=== PATIENT | male | born 2000 | race Hispanic/Latino ===

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

== ENCOUNTER 2019-01-11 23:04 | Emergency (ER) | payer OTHER ==
--- OUTSIDE RECORDS SUMMARY | 2019-01-11 23:06 | XMS REPORT | Clinical Summary ---
:2000 Author Organization [facility] Address [address] [place] [address] Care Team Providers Name Role Phone Pcp, No Primary Care Provider Unavailable Allergies No Known Allergies Medications Medication Sig Dispensed Refills Start Date End Date Status ondansetron Take 4 mg by 0 Discontinued (ZOFRAN-ODT) 4 MG mouth every 8 disintegrating tablet 8 (eight) hours as needed for Nausea. buPROPion (WELLBUTRIN Take 150 mg 0 Discontinued XL) 150 MG 24 hr by mouth 8 tablet daily. diphenhydrAMINE Take 25 mg 0 Discontinued (BENADRYL) 25 mg by mouth 4 8 tablet (four) times daily as needed for Sleep. guanFACINE (TENEX) 2 Take 2 mg by 0 Discontinued MG tablet mouth 8 nightly. OXcarbazepine Take 300 mg 0 Discontinued (TRILEPTAL) 300 MG by mouth 2 8 tablet (two) times daily. lisdexamfetamine Take 70 mg 0 Discontinued (VYVANSE) 70 MG by mouth 8 capsule every morning. omeprazole (PRILOSEC) Take 1 28 capsule 0 05/22/2018 20 MG capsule capsule (20 8 mg total) by mouth 2 (two) times daily for 14 days. Active Problems Problem Noted Date Nausea 05/21/2018 Hypokalemia 05/20/2018 Epigastric abdominal pain 05/19/2018 Bipolar disorder 12/21/2017 History of gastritis 12/21/2017 Nausea & vomiting 12/21/2017 Abdominal pain 12/21/2017 Calculus of gallbladder with acute cholecystitis without obstruction 2017 Encounters Date Type Specialty Care Team Description 05/19/2018 - Hospital Encounter Cardiology Smiley Cardoza MD Epigastric abdominal pain (Primary Dx); 05/22/2018 Seble Cohen Nausea and vomiting, intractability of vomiting not specified, unspecified vomiting type; MD Yamilex History of cholecystitis; Nilesh Gleason History of gastritis; MD Keenan Abdominal pain, unspecified abdominal location; Hypokalemia; Marijuana abuse after 01/10/2018 Social History Tobacco Use Types Packs/Day Years Used Date Never Smoker Smokeless Tobacco: Never Used Alcohol Use Drinks/Week oz/Week Comments No Sex Assigned at Date Recorded Not on file Job Start Date Occupation Industry Not on file Not on file Not on file Travel History Travel Start Travel End No recent travel history available. Last Filed Vital Signs Vital Sign Reading Time Taken Blood Pressure 123/60 05/22/2018 11:46 AM CDT Pulse 68 05/22/2018 11:46 AM CDT Temperature 36.6 C (97.8 F) 05/22/2018 11:46 AM CDT Respiratory Rate 18 05/22/2018 11:46 AM CDT Oxygen Saturation 99% 05/22/2018 11:46 AM CDT Inhaled Oxygen Concentration - - Weight 79.7 kg (175 lb 11.2 oz) 05/20/2018 7:55 AM CDT Height 182.9 cm (6') 05/19/2018 10:05 PM CDT Body Mass Index 23.83 05/20/2018 7:55 AM CDT Plan of Treatment Not on file Procedures Procedure Name Priority Date/Time Associated Comments Diagnosis POCT-GLUCOSE METER Routine 05/22/2018 9:43 Results for this AM CDT procedure are in the results section. CBC W/PLT COUNT & Routine 05/22/2018 4:47 Results for this AUTO DIFFERENTIAL AM CDT procedure are in the results section. CBC W/PLT COUNT & Routine 05/22/2018 4:47 Results for this AUTO DIFFERENTIAL AM CDT procedure are in the results section. BASIC METABOLIC PANEL Routine 05/22/2018 4:47 Results for this (7) AM CDT procedure are in the results section. POCT-GLUCOSE METER Routine 05/21/2018 9:36 Results for this PM CDT procedure are in the results section. POCT-GLUCOSE METER Routine 05/21/2018 4:51 Results for this PM CDT procedure are in the results section. POCT-GLUCOSE METER Routine 05/21/2018 9:03 Results for this AM CDT procedure are in the results section. CBC W/PLT COUNT & Routine 05/21/2018 4:14 Results for this AUTO DIFFERENTIAL AM CDT procedure are in the results section. CBC W/PLT COUNT & Routine 05/21/2018 4:14 Results for this AUTO DIFFERENTIAL AM CDT procedure are in the results section. BASIC METABOLIC PANEL Routine 05/21/2018 4:14 Results for this (7) AM CDT procedure are in the results section. POCT-GLUCOSE METER Routine 05/20/2018 9:18 Results for this PM CDT procedure are in the results section. RAPID DRUG SCREEN, STAT 05/20/2018 3:42 Results for this URINE PM CDT procedure are in the results section. CT BRAIN WITHOUT IV STAT 05/20/2018 11:46 Results for this CONTRAST AM CDT procedure are in the results section. CBC W/PLT COUNT & Routine 05/20/2018 4:38 Results for this AUTO DIFFERENTIAL AM CDT procedure are in the results section. CBC W/PLT COUNT & Routine 05/20/2018 4:38 Results for this AUTO DIFFERENTIAL AM CDT procedure are in the results section. BASIC METABOLIC PANEL Routine 05/20/2018 4:38 Results for this (7) AM CDT procedure are in the results section. POCT-GLUCOSE METER Routine 05/19/2018 11:13 Results for this PM CDT procedure are in the results section. BLOOD CULTURE Routine 05/19/2018 10:56 Results for this PM CDT procedure are in the results section. CT ABDOMEN/PELVIS STAT 05/19/2018 7:38 Results for this WITH IV CONTRAST PM CDT procedure are in the results section. URINALYSIS W/ REFLEX STAT 05/19/2018 6:51 Results for this URINE CULTURE PM CDT procedure are in the results section. CBC W/PLT COUNT & STAT 05/19/2018 5:17 Results for this AUTO DIFFERENTIAL PM CDT procedure are in the results section. LIPASE STAT 05/19/2018 5:17 Results for this PM CDT procedure are in the results section. HEPATIC FUNCTION STAT 05/19/2018 5:17 Results for this PANEL PM CDT procedure are in the results section. BASIC METABOLIC PANEL STAT 05/19/2018 5:17 Results for this (7) PM CDT procedure are in the results section. CBC W/PLT COUNT & STAT 05/19/2018 5:17 Results for this AUTO DIFFERENTIAL PM CDT procedure are in the results section. after 01/10/2018 Results POC-Glucose meter (05/22/2018 9:43 AM CDT)Only the most recent of6 resultswithin the time period is included. POC-Glucose Meter 91Comment: TESTED AT 70 - 110 mg/dL [facility] [address] [facility] [id number] Specimen Blood Performing Organization Address City/State/Zipcode Phone Number [address] [phone] CENTER CBC with platelet count + automated diff (05/22/2018 4:47 AM CDT)Only the most recent of4 resultswithin the time period is included. WBC 4.1 3.5 - 10.5 K/L [facility] RBC 4.92 4.63 - 6.08 M/L [facility] Hemoglobin 14.1 13.7 - 17.5 GM/DL [facility] Hematocrit 42.0 40.1 - 51.0 % [facility] MCV 85.4 79.0 - 92.2 fL [facility] MCH 28.7 25.7 - 32.2 pg [facility] MCHC 33.6 32.3 - 36.5 GM/DL [facility] RDW 12.9 11.6 - 14.4 % [facility] Platelets 231 150 - 450 K/CU MM [facility] MPV 9.8 9.4 - 12.4 fL [facility] nRBC 0 0 - 0 /100 WBC [facility] % Neutros 39 % [facility] % Lymphs 40 % [facility] % Monos 11 % [facility] % Eos 9 % [facility] % Baso 1 % [facility] # Neutros 1.56 (L) 1.78 - 5.38 K/L [facility] # Lymphs 1.62 1.32 - 3.57 K/L [facility] # Monos 0.46 0.30 - 0.82 K/L [facility] # Eos 0.38 0.04 - 0.54 K/L [facility] # Baso 0.03 0.01 - 0.08 K/L [facility] Immature Granulocytes-Relative 0 0 - 1 % [facility] Specimen Blood Performing Organization Address City/State/Zipcode Phone Number [address] [address] CENTER Basic metabolic panel (05/22/2018 4:47 AM CDT)Only the most recent of4 resultswithin the time period is included. Sodium 137 136 - 145 meq/L [facility] Potassium 3.8 3.5 - 5.1 meq/L [facility] Chloride 102 98 - 107 meq/L [facility] CO2 24 22 - 29 meq/L [facility] BUN 7 7 - 21 mg/dL [facility] Creatinine 0.78 0.57 - 1.25 mg/dL [facility] Glucose 93 70 - 105 mg/dL [facility] Calcium 9.7 8.4 - 10.2 mg/dL [facility] EGFR 130Comment: ESTIMATED GFR IS mL/min/1.73 sq m [facility] NOT ACCURATE [facility] CLEARANCE IN PREDICTING GLOMERULAR FILTRATION RATE. ESTIMATED GFR IS NOT APPLICABLE FOR DIALYSIS PATIENTS. Specimen Blood Performing Organization Address City/State/[facility] Cent[facility] Phone Number [place] [phone] [place] [address] [place] Rapid drug screen, urine (05/20/2018 3:42 PM CDT) Barbiturate Screen Negative Negative [facility] Benzodiazepine Screen Negative Negative [facility] Cocaine (Metab.) Screen Negative Negative [facility] Methadone Screen Negative Negative [facility] Opiate Screen Positive (A) Negative [facility] Cannabinoid Screen Negative Negative [facility] Amph/Methamph Screen Negative Negative [facility] Phencyclidine Screen Negative Negative [facility] Oxycodone Screen Negative Negative [facility] Specimen Urine Narrative Performed At [facility]. Cocaine 300 ng/mL Jmyyjsnakkz77 ng/mL Ivtdfxkpohsppt768 ng/mL Barbiturate 200 ng/mL Cinbmqxthfuei64 ng/mL Ocfijm543 ng/mL Methadone 300 ng/mL Amphetamine/ 1000 ng/mL Methamphetamine Oxycodone 300 ng/mL This assay provides an unconfirmed qualitative test result for the clinical management of patients in emergency situations. Chain of custody not maintained. Some jfqb-pix-wzzxrgw medications, as well as adulterants, may cause inaccurate results. Clinical correlation should be applied. A more comprehensive drug screen or confirmation of a detected drug may be performed upon request. Performing Organization Address City/State/Zipcode Phone Number [facility] [address] [place] [id number] [place] [address] brain without IV contrast (05/20/2018 11:46 AM CDT) Specimen Narrative Performed At FINAL REPORT [facility] [facility] head without contrast INDICATION: Nausea, vomiting, persistent headache TECHNIQUE: Axial noncontrast CT images through the head were obtained. This exam was performed according to our departmental dose optimization program which includes automated exposure control, adjustment of the mA and/or kV according to patient size and/or use of iterative reconstruction technique. COMPARISON: None available. FINDINGS: There is no parenchymal hematoma, extra-axial collection, or mass effect. There are no specific CT findings of acute infarct. Please note that CT is insensitive for early or small infarcts. The cerebellar tonsils lie at the foramen magnum. There is no hydrocephalus or midline shift. The visualized sinuses, mastoid air cells, and orbits are unremarkable. An anterior C1 arch corticated defect appears chronic or congenital. The calvarium is intact. IMPRESSION: No acute intracranial hemorrhage or mass effect. No specific CT findings of acute infarct. If there is persistent concern for acute abnormality, MRI is advised. Signed: Oral Velaqzuez MD Report Verified Date/Time:05/20/2018 11:50:57 Reading Location: [address] Neuro Reading Room Procedure Note Interface, External Ris In - 05/20/2018 11:53 AM CDT FINAL REPORT CT head without contrast INDICATION: Nausea, vomiting, persistent headache TECHNIQUE: Axial noncontrast CT images through the head were obtained. This exam was performed according to our departmental dose optimization program which includes automated exposure control, adjustment of the mA and/or kV according to patient size and/or use of iterative reconstruction technique. COMPARISON: None available. FINDINGS: There is no parenchymal hematoma, extra-axial collection, or mass effect. There are no specific CT findings of acute infarct. Please note that CT is insensitive for early or small infarcts. The cerebellar tonsils lie at the foramen magnum. There is no hydrocephalus or midline shift. The visualized sinuses, mastoid air cells, and orbits are unremarkable. An anterior C1 arch corticated defect appears chronic or congenital. The calvarium is intact. IMPRESSION: No acute intracranial hemorrhage or mass effect. No specific CT findings of acute infarct. If there is persistent concern for acute abnormality, MRI is advised. Signed: Oral Velazquez MD Report Verified Date/Time: 05/20/2018 11:50:57 Reading Location: [address] Neuro Reading Room Performing Organization Address City/State/Zipcode Phone Number [facility] Blood culture #1 (05/19/2018 10:56 PM CDT) Result No growth in 5 days [facility] Specimen Blood Performing Organization Address City/State/Zipcode Phone Number [facility] [address] [place] [address] abdomen/pelvis with IV contrast (05/19/2018 7:38 PM CDT) Specimen Narrative Performed At FINAL REPORT [facility] CLINICAL HISTORY: Acute abdominal pain. FINDINGS: Multiple axial images of the abdomen and pelvis were performed after the uncomplicated administration of IV contrast. Oral contrast was given. This exam was performed according to our departmental dose-optimization program, which includes automated exposure control, adjustment of the mA and/or kV according to patient size and/or use of the iterative reconstruction technique. Comparison:None. Lower chest: Clear lungs. No pleural effusion or pneumothorax. Visualized cardiac contours normal. Liver: No significant findings. Gallbladder and biliary tree: Previous cholecystectomy Spleen: No significant findings. Adrenal Glands: No significant findings. Kidneys and ureters: 1 cm right renal midpole cyst. Stomach and Duodenum: No significant findings. Pancreas: No significant findings. Bowel: No significant findings. Appendix: Normal. Bladder: No significant findings. Major vascular structures: No significant findings. Reproductive organs: No significant findings. Other: No free air, fluid or adenopathy Skeleton: No acute bony abnormality. IMPRESSION: No acute abnormality. Signed: Mannie Schneider MD Report Verified Date/Time:05/19/2018 20:08:27 Reading Location: [address] Reading Room Procedure Note Interface, External Ris In - 05/19/2018 8:10 PM CDT FINAL REPORT CLINICAL HISTORY: Acute abdominal pain. FINDINGS: Multiple axial images of the abdomen and pelvis were performed after the uncomplicated administration of IV contrast. Oral contrast was given. This exam was performed according to our departmental dose-optimization program, which includes automated exposure control, adjustment of the mA and/or kV according to patient size and/or use of the iterative reconstruction technique. Comparison:None. Lower chest: Clear lungs. No pleural effusion or pneumothorax. Visualized cardiac contours normal. Liver: No significant findings. Gallbladder and biliary tree: Previous cholecystectomy Spleen: No significant findings. Adrenal Glands: No significant findings. Kidneys and ureters: 1 cm right renal midpole cyst. Stomach and Duodenum: No significant findings. Pancreas: No significant findings. Bowel: No significant findings. Appendix: Normal. Bladder: No significant findings. Major vascular structures: No significant findings. Reproductive organs: No significant findings. Other: No free air, fluid or adenopathy Skeleton: No acute bony abnormality. IMPRESSION: No acute abnormality. Signed: Mannie Schneider MD Report Verified Date/Time: 05/19/2018 20:08:27 Reading Location: [address] Reading Room Performing Organization Address City/[facility] Cent[facility] Phone Number GE RIS Urinalysis w/Microscopic + Reflex to Culture (05/19/2018 6:51 PM CDT) Color, UA Yellow [facility] Clarity, UA Clear [facility] Specific [place], UA 1.020 1.001 - 1.035 [facility] pH, UA 6.5 5.0 - 8.0 [facility] Protein, UA 100 mg/dL (A) Negative [facility] Glucose, UA Negative Negative [facility] Ketones, UA 150 mg/dL (A) Negative [facility] Bilirubin, UA Negative Negative [facility] Blood, UA Negative Negative [facility] Nitrite, UA Negative Negative [facility] Leukocytes, UA Negative Negative [facility] Urobilinogen, UA 4.0 (H) 0.2 - 1.0 mg/dL [facility] RBC, UA 0 /HPF [facility] WBC, UA 1 /HPF [facility] Mucus Many [facility] Specimen Source [facility] Specimen Urine Performing Organization Address City/[facility]/Zipcode Phone Number [facility] [address] [place] [address] [place] Lipase (05/19/2018 5:17 PM CDT) Lipase 25 8 - 78 U/L [facility] Specimen Blood Performing Organization Address [facility]/Zipcode Phone Number [address] [phone] [place] Hepatic function panel (05/19/2018 5:17 PM CDT) Protein, Total 8.1 6.0 - 8.3 gm/dL [facility] Albumin 4.8 3.5 - 5.0 g/dL [facility] Total Bilirubin 1.2 0.2 - 1.2 mg/dL [facility] Bilirubin, Direct 0.5 0.1 - 0.5 mg/dL [facility] Alkaline Phosphatase 171 (H) 40 - 150 U/L [facility] AST 23 5 - 34 U/L [facility] ALT 30 6 - 55 U/L [facility] Specimen Blood Performing Organization Address [facility]/Zipcode Phone Number [address] [address] CENTER after 01/10/2018 Insurance Payer Benefit Plan / Group Subscriber ID Type Phone Address MEDICAID - MEDICAID MEDICAID [employer] xxxxxxxxx Medicaid MGD CARE Non-Contracted Advance Directives For more information, please contact:[address] [phone] Code Status Date Activated Date Inactivated Comments Full Code 05/19/2018 10:14 PM 05/22/2018 4:39 PM This code status was determined by: Patient Full Code 12/21/2017 12:44 AM 12/22/2017 4:54 PM This code status was determined by: Patient
--- OUTSIDE RECORDS SUMMARY | 2019-01-11 23:07 | XMS REPORT ---
:2000 [facility] Address [address] [place] [address] Care Team Providers Name Role Phone MARVIN CONNOR Unavailable Unavailable ALKA LARA Unavailable Unavailable Problems This patient has no known problems. Allergies, Adverse Reactions, Alerts This patient has no known allergies or adverse reactions. Medications This patient has no known medications. Encounters Start End Encounter Admission Attending Care Care Encounter Date/Time Date/Time Type Type Clinicians Facility Department ID 2018-12-28 2018-12-28 Emergency E [facility]BL [facility]BL [id number] 20:25:00 20:25:00 Results Test Description Test Time Test Comments Text Results Atomic Results Result Comments BLOOD CULTURE 2018-05-25 06:00:00 Test Item Value Reference Range Comments CULTURE (BEAKER) (test cian=4781) No growth in 5 days POCT-GLUCOSE [id number] 09:44:00 Test Item Value Reference Range Comments POC-GLUCOSE METER (BEAKER) 91 mg/dL 70-[address] [facility] [address] [facility] (test inyh=2043) [facility] [address] BASIC METABOLIC [id number] 05:43:00 Test Item Value Reference Range Comments SODIUM (BEAKER) (test 137 meq/L 136-145 bpne=683) POTASSIUM (BEAKER) (test 3.8 meq/L 3.5-5.1 lytb=203) CHLORIDE (BEAKER) (test 102 meq/L 98-107 ylud=350) CO2 (BEAKER) (test 24 meq/L 22-29 zjcw=384) BLOOD UREA NITROGEN 7 mg/dL 7-21 (BEAKER) (test smhb=302) CREATININE (BEAKER) (test 0.78 mg/dL 0.57-1.25 aoaf=739) GLUCOSE RANDOM (BEAKER) 93 mg/dL 70-105 (test gbxu=192) CALCIUM (BEAKER) (test 9.7 mg/dL 8.4-10.2 cxxd=668) EGFR (BEAKER) (test 130 mL/min/1.73 sq m ESTIMATED GFR IS NOT rjxs=5848) ACCURATE CREATININE CLEARANCE IN PREDICTING GLOMERULAR FILTRATION RATE. ESTIMATED GFR IS NOT APPLICABLE FOR DIALYSIS PATIENTS. CBC W/PLT COUNT & AUTO [id number] 05:33:00 Test Item Value Reference Range Comments WHITE BLOOD CELL COUNT (BEAKER) (test atkv=726) 4.1 K/ L 3.5-10.5 RED BLOOD CELL COUNT (BEAKER) (test itrp=359) 4.92 M/ L 4.63-6.08 HEMOGLOBIN (BEAKER) (test kpfe=416) 14.1 GM/DL 13.7-17.5 HEMATOCRIT (BEAKER) (test efio=383) 42.0 % 40.1-51.0 MEAN CORPUSCULAR VOLUME (BEAKER) (test caiq=972) 85.4 fL 79.0-92.2 MEAN CORPUSCULAR HEMOGLOBIN (BEAKER) (test 28.7 pg 25.7-32.2 hhvb=612) MEAN CORPUSCULAR HEMOGLOBIN CONC (BEAKER) (test 33.6 GM/DL 32.3-36.5 qfdo=804) RED CELL DISTRIBUTION WIDTH (BEAKER) (test 12.9 % 11.6-14.4 jrql=543) PLATELET COUNT (BEAKER) (test cviy=239) 231 K/CU MM 150-450 MEAN PLATELET VOLUME (BEAKER) (test bcng=118) 9.8 fL 9.4-12.4 NUCLEATED RED BLOOD CELLS (BEAKER) (test 0 /100 WBC 0-0 rpby=709) NEUTROPHILS RELATIVE PERCENT (BEAKER) (test 39 % kmem=569) LYMPHOCYTES RELATIVE PERCENT (BEAKER) (test 40 % pvkw=974) MONOCYTES RELATIVE PERCENT (BEAKER) (test 11 % qyxw=589) EOSINOPHILS RELATIVE PERCENT (BEAKER) (test 9 % sftj=251) BASOPHILS RELATIVE PERCENT (BEAKER) (test 1 % ryfb=629) NEUTROPHILS ABSOLUTE COUNT (BEAKER) (test 1.56 K/ L 1.78-5.38 pagi=643) LYMPHOCYTES ABSOLUTE COUNT (BEAKER) (test 1.62 K/ L 1.32-3.57 mvlw=088) MONOCYTES ABSOLUTE COUNT (BEAKER) (test 0.46 K/ L 0.30-0.82 batd=196) EOSINOPHILS ABSOLUTE COUNT (BEAKER) (test 0.38 K/ L 0.04-0.54 eert=215) BASOPHILS ABSOLUTE COUNT (BEAKER) (test 0.03 K/ L 0.01-0.08 lebg=685) IMMATURE GRANULOCYTES-RELATIVE PERCENT (BEAKER) 0 % 0-1 (test zyvg=8040) POCT-GLUCOSE [id number] 21:43:00 Test Item Value Reference Range Comments POC-GLUCOSE METER (BEAKER) 93 mg/dL 70-110 TESTED AT [address] (test fich=4653) [place] [id number] POCT-GLUCOSE [id number] 17:17:00 Test Item Value Reference Range Comments POC-GLUCOSE METER (BEAKER) 146 mg/dL 70-110 TESTED AT [address] (test sbjk=9738) [place] [id number] POCT-GLUCOSE [id number] 09:05:00 Test Item Value Reference Range Comments POC-GLUCOSE METER (BEAKER) 111 mg/dL 70-110 TESTED AT [address] (test yfyp=4577) [facility] [address] BASIC METABOLIC [id number] 05:12:00 Test Item Value Reference Range Comments SODIUM (BEAKER) (test 136 meq/L 136-145 kcbj=330) POTASSIUM (BEAKER) (test 3.5 meq/L 3.5-5.1 payg=394) CHLORIDE (BEAKER) (test 102 meq/L 98-107 wtnv=576) CO2 (BEAKER) (test 27 meq/L 22-29 lbji=049) BLOOD UREA NITROGEN 6 mg/dL 7-21 (BEAKER) (test fork=518) CREATININE (BEAKER) (test 0.86 mg/dL 0.57-1.25 ozhu=739) GLUCOSE RANDOM (BEAKER) 82 mg/dL 70-105 (test ojkr=092) CALCIUM (BEAKER) (test 9.4 mg/dL 8.4-10.2 embg=203) EGFR (BEAKER) (test 116 mL/min/1.73 sq m ESTIMATED GFR IS NOT fkdi=7881) ACCURATE CREATININE CLEARANCE IN PREDICTING GLOMERULAR FILTRATION RATE. ESTIMATED GFR IS NOT APPLICABLE FOR DIALYSIS PATIENTS. CBC W/PLT COUNT & AUTO [id number] 04:52:00 Test Item Value Reference Range Comments WHITE BLOOD CELL COUNT (BEAKER) (test efcb=877) 3.8 K/ L 3.5-10.5 RED BLOOD CELL COUNT (BEAKER) (test vuem=461) 4.54 M/ L 4.63-6.08 HEMOGLOBIN (BEAKER) (test ycax=605) 13.2 GM/DL 13.7-17.5 HEMATOCRIT (BEAKER) (test hyft=788) 39.0 % 40.1-51.0 MEAN CORPUSCULAR VOLUME (BEAKER) (test gsmi=993) 85.9 fL 79.0-92.2 MEAN CORPUSCULAR HEMOGLOBIN (BEAKER) (test 29.1 pg 25.7-32.2 mxdn=256) MEAN CORPUSCULAR HEMOGLOBIN CONC (BEAKER) (test 33.8 GM/DL 32.3-36.5 ryov=472) RED CELL DISTRIBUTION WIDTH (BEAKER) (test 12.7 % 11.6-14.4 qple=624) PLATELET COUNT (BEAKER) (test mjfa=755) 201 K/CU MM 150-450 MEAN PLATELET VOLUME (BEAKER) (test qaoj=750) 9.7 fL 9.4-12.4 NUCLEATED RED BLOOD CELLS (BEAKER) (test 0 /100 WBC 0-0 azhk=716) NEUTROPHILS RELATIVE PERCENT (BEAKER) (test 36 % vgvc=325) LYMPHOCYTES RELATIVE PERCENT (BEAKER) (test 45 % xvhn=827) MONOCYTES RELATIVE PERCENT (BEAKER) (test 11 % rmii=586) EOSINOPHILS RELATIVE PERCENT (BEAKER) (test 6 % dyjn=663) BASOPHILS RELATIVE PERCENT (BEAKER) (test 1 % itjj=088) NEUTROPHILS ABSOLUTE COUNT (BEAKER) (test 1.39 K/ L 1.78-5.38 ssoc=253) LYMPHOCYTES ABSOLUTE COUNT (BEAKER) (test 1.74 K/ L 1.32-3.57 xiae=292) MONOCYTES ABSOLUTE COUNT (BEAKER) (test 0.43 K/ L 0.30-0.82 uavw=204) EOSINOPHILS ABSOLUTE COUNT (BEAKER) (test 0.24 K/ L 0.04-0.54 czpd=466) BASOPHILS ABSOLUTE COUNT (BEAKER) (test 0.02 K/ L 0.01-0.08 qknw=210) IMMATURE GRANULOCYTES-RELATIVE PERCENT (BEAKER) 0 % 0-1 (test zruz=2266) POCT-GLUCOSE [id number] 21:32:00 Test Item Value Reference Range Comments POC-GLUCOSE METER (BEAKER) 132 mg/dL 70-[address] [facility] [address] (test yzbg=2954) [facility] [address] RAPID DRUG SCREEN, [id number] 16:13:00 Test Item Value Reference Range Comments BARBITURATE URINE (BEAKER) (test lyse=426) Negative Negative BENZODIAZEPINE SCREEN URINE (BEAKER) (test Negative Negative ubqp=956) COCAINE (METAB.) SCREEN (BEAKER) (test wwca=9171) Negative Negative METHADONE SCREEN (BEAKER) (test tbpb=1222) Negative Negative OPIATE SCREEN URINE (BEAKER) (test wewi=249) Positive Negative CANNABINOID SCREEN URINE (BEAKER) (test fyio=604) Negative Negative AMPH/METHAMPH SCREEN (BEAKER) (test cixc=1186) Negative Negative PHENCYCLIDINE SCREEN URINE (BEAKER) (test knll=127) Negative Negative OXYCODONE SCREEN URINE (BEAKER) (test yfmi=8109) Negative Negative DRUG CUTOFF CONC.Cocaine 300 ng/mL Cannabinoid 50 ng/mL Benzodiazepine 200 ng/mLBarbiturate 200 ng/ mLPhencyclidine 25 ng/mLOpiate 300 ng/mLMethadone 300 ng/mLAmphetamine/ 1000 ng/mL MethamphetamineOxycodone 300 ng/mLThis assay provides an unconfirmed qualitative test result for the clinical management of patients in emergency situations. Chain of custody not maintained. Some gxsq-eip-eksqane medications, as well as adulterants, may cause inaccurate results. Clinical correlation should be applied. A more comprehensive drug screen or confirmation of a detected drug may be performed upon request.CT, BRAIN, WITHOUT [id number] 11:50:00FINAL REPORT CT head without contrast INDICATION: Nausea, vomiting, persistent headache TECHNIQUE: Axial noncontrast CT images through the head were obtained. This exam was performed according to our departmental dose optimization program which includes automated exposure control, adjustment of the mA and/or kV according to patient size and/or use of iterative reconstruction technique. COMPARISON: None available. FINDINGS:There is no parenchymal hematoma, extra-axial collection, or mass effect. There are no specific CT findings of acute infarct. Please note that CT is insensitive for early or small infarcts. The cerebellar tonsils lie at the foramen magnum. There is no hydrocephalus or midline shift. The visualized sinuses, mastoid air cells, and orbits are unremarkable. Ananterior C1 arch corticated defect appears chronic or congenital. The calvarium is intact. IMPRESSION: No acute intracranial hemorrhage or mass effect. No specific CT findings of acute infarct. If there is persistent concern for acute abnormality, MRI is advised. Signed: Oral Velazquez MDReportVerified Date/Time: 05/20/2018 11:50:57 Reading Location: [address] Neuro Reading Room BASIC METABOLIC [id number] 06:06:00 Test Item Value Reference Range Comments SODIUM (BEAKER) (test 134 meq/L 136-145 zsws=264) POTASSIUM (BEAKER) (test 3.1 meq/L 3.5-5.1 yecw=872) CHLORIDE (BEAKER) (test 102 meq/L 98-107 qaqz=571) CO2 (BEAKER) (test 24 meq/L 22-29 fngg=603) BLOOD UREA NITROGEN 8 mg/dL 7-21 (BEAKER) (test otpc=346) CREATININE (BEAKER) (test 0.81 mg/dL 0.57-1.25 omrr=331) GLUCOSE RANDOM (BEAKER) 99 mg/dL 70-105 (test dhfr=188) CALCIUM (BEAKER) (test 9.4 mg/dL 8.4-10.2 isoa=052) EGFR (BEAKER) (test 124 mL/min/1.73 sq m ESTIMATED GFR IS NOT syqn=3270) ACCURATE CREATININE CLEARANCE IN PREDICTING GLOMERULAR FILTRATION RATE. ESTIMATED GFR IS NOT APPLICABLE FOR DIALYSIS PATIENTS. CBC W/PLT COUNT & AUTO [id number] 04:55:00 Test Item Value Reference Range Comments WHITE BLOOD CELL COUNT (BEAKER) (test ynkd=770) 5.3 K/ L 3.5-10.5 RED BLOOD CELL COUNT (BEAKER) (test lets=117) 4.23 M/ L 4.63-6.08 HEMOGLOBIN (BEAKER) (test tsoc=582) 12.3 GM/DL 13.7-17.5 HEMATOCRIT (BEAKER) (test dick=150) 35.8 % 40.1-51.0 MEAN CORPUSCULAR VOLUME (BEAKER) (test uhxm=356) 84.6 fL 79.0-92.2 MEAN CORPUSCULAR HEMOGLOBIN (BEAKER) (test 29.1 pg 25.7-32.2 xupz=214) MEAN CORPUSCULAR HEMOGLOBIN CONC (BEAKER) (test 34.4 GM/DL 32.3-36.5 ruap=849) RED CELL DISTRIBUTION WIDTH (BEAKER) (test 12.5 % 11.6-14.4 fjgl=099) PLATELET COUNT (BEAKER) (test bfwb=218) 215 K/CU MM 150-450 MEAN PLATELET VOLUME (BEAKER) (test xdce=863) 9.4 fL 9.4-12.4 NUCLEATED RED BLOOD CELLS (BEAKER) (test 0 /100 WBC 0-0 wemq=974) NEUTROPHILS RELATIVE PERCENT (BEAKER) (test 50 % vlva=467) LYMPHOCYTES RELATIVE PERCENT (BEAKER) (test 33 % uneo=921) MONOCYTES RELATIVE PERCENT (BEAKER) (test 12 % fwsu=840) EOSINOPHILS RELATIVE PERCENT (BEAKER) (test 4 % ofgl=619) BASOPHILS RELATIVE PERCENT (BEAKER) (test 1 % bdtc=557) NEUTROPHILS ABSOLUTE COUNT (BEAKER) (test 2.64 K/ L 1.78-5.38 jgne=848) LYMPHOCYTES ABSOLUTE COUNT (BEAKER) (test 1.78 K/ L 1.32-3.57 fmou=363) MONOCYTES ABSOLUTE COUNT (BEAKER) (test 0.65 K/ L 0.30-0.82 dkrq=567) EOSINOPHILS ABSOLUTE COUNT (BEAKER) (test 0.22 K/ L 0.04-0.54 grui=603) BASOPHILS ABSOLUTE COUNT (BEAKER) (test 0.03 K/ L 0.01-0.08 yiwc=525) IMMATURE GRANULOCYTES-RELATIVE PERCENT (BEAKER) 0 % 0-1 (test xarq=2332) POCT-GLUCOSE [id number] 23:19:00 Test Item Value Reference Range Comments POC-GLUCOSE METER (BEAKER) 100 mg/dL 70-110 TESTED AT [address] (test bekp=9397) [facility] [address] CT, [id number] 20:08:00Reason for exam:->ABDOMINAL PAINReason for exam :->NAUSEAReason for exam:->EMESISWhat is thepatient's sedation requirement ?->No SedationFINAL REPORT CLINICAL HISTORY: Acute abdominal pain. FINDINGS: Multiple axial images of the abdomen and pelvis were performed after the uncomplicated administration of IV contrast. Oral contrast was given. This exam was performed according to our departmental dose- optimizationprogram, which includes automated exposure control, adjustment of [...] Pancreas: No significant findings. Bowel: No significant findings.Appendix: Normal. Bladder: No significant findings. Major vascular structures: No significant findings. Reproductive organs: No significant findings. Other: No free air, fluid or adenopathy Skeleton: No acute bony abnormality. IMPRESSION: No acute abnormality. Signed: Stella Schneiderepnortheast missouri rural health network Verified Date/Time: 05/19/2018 20:08:27 Reading Location: [address] Reading Room Electronically signed by: STELLA SCHNEIDER M.D. on 08:08 PMURINALYSIS W/ REFLEX URINE [id number] 19:20:00 Test Item Value Reference Range Comments COLOR (BEAKER) (test ttnd=280) Yellow CLARITY (BEAKER) (test pofa=500) Clear SPECIFIC GRAVITY UA (BEAKER) (test dmxk=842) 1.020 1.001-1.035 PH UA (BEAKER) (test lqod=966) 6.5 5.0-8.0 PROTEIN UA (BEAKER) (test zixf=250) 100 mg/dL Negative GLUCOSE UA (BEAKER) (test rrwv=905) Negative Negative KETONES UA (BEAKER) (test qdvx=706) 150 mg/dL Negative BILIRUBIN UA (BEAKER) (test orvd=444) Negative Negative BLOOD UA (BEAKER) (test iaxe=915) Negative Negative NITRITE UA (BEAKER) (test ciyw=334) Negative Negative LEUKOCYTE ESTERASE UA (BEAKER) (test zdby=150) Negative Negative UROBILINOGEN UA (BEAKER) (test ewxc=844) 4.0 mg/dL 0.2-1.0 RBC UA (BEAKER) (test vwxf=363) 0 /HPF WBC UA (BEAKER) (test exxs=334) 1 /HPF MUCUS (BEAKER) (test cukz=9371) Many SOURCE(BEAKER) (test yzbt=2689) [id number] 17:50:00 Test Item Value Reference Range Comments LIPASE (BEAKER) (test olsa=711) 25 U/L 8-78 BASIC METABOLIC [id number] 17:50:00 Test Item Value Reference Range Comments SODIUM (BEAKER) (test 134 meq/L 136-145 plyy=502) POTASSIUM (BEAKER) (test 4.2 meq/L 3.5-5.1 bwws=286) CHLORIDE (BEAKER) (test 100 meq/L 98-107 wiig=803) CO2 (BEAKER) (test 24 meq/L 22-29 ryub=854) BLOOD UREA NITROGEN 11 mg/dL 7-21 (BEAKER) (test jipp=761) CREATININE (BEAKER) (test 0.92 mg/dL 0.57-1.25 kouu=162) GLUCOSE RANDOM (BEAKER) 89 mg/dL 70-105 (test mwsa=003) CALCIUM (BEAKER) (test 10.0 mg/dL 8.4-10.2 hldn=855) EGFR (BEAKER) (test 107 mL/min/1.73 sq m ESTIMATED GFR IS NOT hcdg=4851) ACCURATE CREATININE CLEARANCE IN PREDICTING GLOMERULAR FILTRATION RATE. ESTIMATED GFR IS NOT APPLICABLE FOR DIALYSIS PATIENTS. HEPATIC FUNCTION [id number] 17:50:00 Test Item Value Reference Range Comments TOTAL PROTEIN (BEAKER) (test jooe=137) 8.1 gm/dL 6.0-8.3 ALBUMIN (BEAKER) (test klcg=0129) 4.8 g/dL 3.5-5.0 BILIRUBIN TOTAL (BEAKER) (test fpep=355) 1.2 mg/dL 0.2-1.2 BILIRUBIN DIRECT (BEAKER) (test dxaa=220) 0.5 mg/dL 0.1-0.5 ALKALINE PHOSPHATASE (BEAKER) (test ynnw=036) 171 U/L 40-150 AST (SGOT) (BEAKER) (test lvjq=875) 23 U/L 5-34 ALT (SGPT) (BEAKER) (test ztlj=784) 30 U/L 6-55 CBC W/PLT COUNT & AUTO [id number] 17:30:00 Test Item Value Reference Range Comments WHITE BLOOD CELL COUNT (BEAKER) (test yqay=092) 6.0 K/ L 3.5-10.5 RED BLOOD CELL COUNT (BEAKER) (test txaq=297) 4.60 M/ L 4.63-6.08 HEMOGLOBIN (BEAKER) (test krke=917) 13.5 GM/DL 13.7-17.5 HEMATOCRIT (BEAKER) (test epgv=158) 39.0 % 40.1-51.0 MEAN CORPUSCULAR VOLUME (BEAKER) (test qcps=804) 84.8 fL 79.0-92.2 MEAN CORPUSCULAR HEMOGLOBIN (BEAKER) (test 29.3 pg 25.7-32.2 dbff=147) MEAN CORPUSCULAR HEMOGLOBIN CONC (BEAKER) (test 34.6 GM/DL 32.3-36.5 rbwx=751) RED CELL DISTRIBUTION WIDTH (BEAKER) (test 12.6 % 11.6-14.4 wmuo=203) PLATELET COUNT (BEAKER) (test vewr=838) 235 K/CU MM 150-450 MEAN PLATELET VOLUME (BEAKER) (test oxkr=380) 9.4 fL 9.4-12.4 NUCLEATED RED BLOOD CELLS (BEAKER) (test 0 /100 WBC 0-0 xmca=156) NEUTROPHILS RELATIVE PERCENT (BEAKER) (test 74 % iyja=486) LYMPHOCYTES RELATIVE PERCENT (BEAKER) (test 16 % itos=266) MONOCYTES RELATIVE PERCENT (BEAKER) (test 8 % axfr=548) EOSINOPHILS RELATIVE PERCENT (BEAKER) (test 1 % tmlx=919) BASOPHILS RELATIVE PERCENT (BEAKER) (test 1 % zfeq=958) NEUTROPHILS ABSOLUTE COUNT (BEAKER) (test 4.44 K/ L 1.78-5.38 evge=974) LYMPHOCYTES ABSOLUTE COUNT (BEAKER) (test 0.94 K/ L 1.32-3.57 bvtf=822) MONOCYTES ABSOLUTE COUNT (BEAKER) (test 0.48 K/ L 0.30-0.82 wdjv=497) EOSINOPHILS ABSOLUTE COUNT (BEAKER) (test 0.05 K/ L 0.04-0.54 ahqv=756) BASOPHILS ABSOLUTE COUNT (BEAKER) (test 0.04 K/ L 0.01-0.08 wetv=852) IMMATURE GRANULOCYTES-RELATIVE PERCENT (BEAKER) 0 % 0-1 (test ubsi=6063) TISSUE [id number] 18:37:00Surgical Pathology Report Case: [id number] Authorizing Provider: García Mancilla, Collected: 12/21/2017 1713 OrderingLocation: [facility] Received: 2017 0836 SERVICES Pathologist: Tee Damian MD Specimen: Gallbladder A. GALLBLADDER, CHOLECYSTECTOMY: - CHRONIC CHOLECYSTITIS WITH CHOLELITHIASIS Signing Pathologist Direct Phone Line: [phone] signed by Tee Damian MD on 12/23/2017 at 6:37 [id number] Gallbladder Received fresh labeled "gallbladder" is a 5.0 x 3.0 x 1.0 cm previously opened gallbladder. The serosal surface is purple-stephens and exhibits cautery artifact on the hepatic surface. The lumen contains yellow-green to red mucoid bile and multiple irregular yellow-gold bosselated calculi ranging in size from 0.5 cm to 0.8 cm in greatest dimension. The mucosal surface is yellow-green to red, velvety and glistening. The wall measures up to 0.2 cm in maximum thickness. Section code: A1, parallel cystic duct resection margin; A2, outreach representative section of gallbladder. DB/plPerformed.[id number] 06:52:00 Test Item Value Reference Range Comments PHOSPHORUS (BEAKER) (test hqfi=321) 4.7 mg/dL 2.3-4.7 [id number] 06:52:00 Test Item Value Reference Range Comments MAGNESIUM (BEAKER) (test pgbj=373) 2.3 mg/dL 1.6-2.6 BASIC METABOLIC [id number] 06:52:00 Test Item Value Reference Range Comments SODIUM (BEAKER) (test 137 meq/L 136-145 lole=154) POTASSIUM (BEAKER) (test 4.1 meq/L 3.5-5.1 piqc=272) CHLORIDE (BEAKER) (test 104 meq/L 98-107 mzmk=208) CO2 (BEAKER) (test 25 meq/L 22-29 cwif=054) BLOOD UREA NITROGEN 6 mg/dL 7-21 (BEAKER) (test xrvt=703) CREATININE (BEAKER) (test 0.83 mg/dL 0.57-1.25 moge=801) GLUCOSE RANDOM (BEAKER) 106 mg/dL 70-105 (test armo=634) CALCIUM (BEAKER) (test 9.5 mg/dL 8.4-10.2 qdzj=976) EGFR (BEAKER) (test 121 mL/min/1.73 sq m ESTIMATED GFR IS NOT hexp=2055) ACCURATE CREATININE CLEARANCE IN PREDICTING GLOMERULAR FILTRATION RATE. ESTIMATED GFR IS NOT APPLICABLE FOR DIALYSIS PATIENTS. HEPATIC FUNCTION [id number] 06:52:00 Test Item Value Reference Range Comments TOTAL PROTEIN (BEAKER) (test ntyc=088) 7.1 gm/dL 6.0-8.3 ALBUMIN (BEAKER) (test vagr=6915) 4.3 g/dL 3.5-5.0 BILIRUBIN TOTAL (BEAKER) (test tpst=877) 0.9 mg/dL 0.2-1.2 BILIRUBIN DIRECT (BEAKER) (test vvce=728) 0.4 mg/dL 0.1-0.5 ALKALINE PHOSPHATASE (BEAKER) (test zczw=788) 169 U/L 40-150 AST (SGOT) (BEAKER) (test iuyr=679) 38 U/L 5-34 ALT (SGPT) (BEAKER) (test epcp=129) 53 U/L 6-55 CREATINE KINASE (CK), TOTAL AND [id number] 06:52:00 Test Item Value Reference Range Comments CREATINE KINASE TOTAL (BEAKER) (test ctqq=734) 119 U/L 29-200 CREATINE KINASE-MB (BEAKER) (test rcwh=159) 0.7 ng/mL 0.0-6.6 CREATINE KINASE-MB INDEX (BEAKER) (test nipd=695) 0.6 % CK-MB Reference Range:<6.7 Normal6.7-10.0 Borderline>10.0 AbnormalTROPONIN [id number] 06:50:00 Test Item Value Reference Range Comments TROPONIN I (BEAKER) (test tuxe=838) < ng/mL 0.00-0.03 Troponin I (TnI) levels must be interpreted in the context of the presenting symptoms and the clinical findings. Elevated TnI levels indicate myocardial damage, but are not specific for ischemic heart disease. Elevated TnI levels are seen in patients with other cardiac conditions (including myocarditis and congestive heart failure), and slight TnI elevations occur in patients with other conditions, including sepsis, renal failure, acidosis, acute neurological disease, and persistent tachyarrhythmia.CBC W/PLT COUNT & AUTO [id number] 06:24:00 Test Item Value Reference Range Comments WHITE BLOOD CELL COUNT (BEAKER) (test jheb=117) 8.9 K/ L 3.5-10.5 RED BLOOD CELL COUNT (BEAKER) (test nfok=422) 4.20 M/ L 4.63-6.08 HEMOGLOBIN (BEAKER) (test edba=911) 12.5 GM/DL 13.7-17.5 HEMATOCRIT (BEAKER) (test ajds=137) 37.0 % 40.1-51.0 MEAN CORPUSCULAR VOLUME (BEAKER) (test ubos=956) 88.1 fL 79.0-92.2 MEAN CORPUSCULAR HEMOGLOBIN (BEAKER) (test 29.8 pg 25.7-32.2 rfza=319) MEAN CORPUSCULAR HEMOGLOBIN CONC (BEAKER) (test 33.8 GM/DL 32.3-36.5 rxog=240) RED CELL DISTRIBUTION WIDTH (BEAKER) (test 12.9 % 11.6-14.4 gima=469) PLATELET COUNT (BEAKER) (test gztj=217) 248 K/CU MM 150-450 MEAN PLATELET VOLUME (BEAKER) (test vmqf=689) 9.1 fL 9.4-12.4 NUCLEATED RED BLOOD CELLS (BEAKER) (test 0 /100 WBC 0-0 uvfz=710) NEUTROPHILS RELATIVE PERCENT (BEAKER) (test 71 % tfuy=006) LYMPHOCYTES RELATIVE PERCENT (BEAKER) (test 17 % ejhc=851) MONOCYTES RELATIVE PERCENT (BEAKER) (test 10 % yelq=594) EOSINOPHILS RELATIVE PERCENT (BEAKER) (test 1 % pxoe=448) BASOPHILS RELATIVE PERCENT (BEAKER) (test 0 % rxpf=825) NEUTROPHILS ABSOLUTE COUNT (BEAKER) (test 6.38 K/ L 1.78-5.38 utuj=475) LYMPHOCYTES ABSOLUTE COUNT (BEAKER) (test 1.52 K/ L 1.32-3.57 eokz=119) MONOCYTES ABSOLUTE COUNT (BEAKER) (test 0.92 K/ L 0.30-0.82 xhdl=279) EOSINOPHILS ABSOLUTE COUNT (BEAKER) (test 0.05 K/ L 0.04-0.54 nlcl=754) BASOPHILS ABSOLUTE COUNT (BEAKER) (test 0.04 K/ L 0.01-0.08 pepg=425) IMMATURE GRANULOCYTES-RELATIVE PERCENT (BEAKER) 0 % 0-1 (test iupx=6830) HEMOGLOBIN [id number] 20:06:00 Test Item Value Reference Range Comments HEMOGLOBIN A1C (BEAKER) (test ywnr=109) 5.3 % 4.3-6.1 SEDIMENTATION [id number] 09:14:00 Test Item Value Reference Range Comments SEDIMENTATION RATE, ERYTHROCYTE (BEAKER) (test 10 mm/HR 0-15 uitw=159) TSH/FREE T4 IF [id number] 05:22:00 Test Item Value Reference Range Comments THYROID STIMULATING HORMONE (BEAKER) (test 1.36 uIU/mL 0.35-4.94 hzmk=903) CREATINE KINASE (CK), TOTAL AND [id number] 05:08:00 Test Item Value Reference Range Comments CREATINE KINASE TOTAL (BEAKER) (test bhou=055) 108 U/L 29-200 CREATINE KINASE-MB (BEAKER) (test poxq=848) 0.9 ng/mL 0.0-6.6 CREATINE KINASE-MB INDEX (BEAKER) (test brei=492) 0.8 % CK-MB Reference Range:<6.7 Normal6.7-10.0 Borderline>10.0 AbnormalTROPONIN [id number] 05:08:00 Test Item Value Reference Range Comments TROPONIN I (BEAKER) (test ltoi=249) < ng/mL 0.00-0.03 Troponin I (TnI) levels must be interpreted in the context of the presenting symptoms and the clinical findings. Elevated TnI levels indicate myocardial damage, but are not specific for ischemic heart disease. Elevated TnI levels are seen in patients with other cardiac conditions (including myocarditis and congestive heart failure), and slight TnI elevations occur in patients with other conditions, including sepsis, renal failure, acidosis, acute neurological disease, and persistent tachyarrhythmia.[id number] 05:02:00 Test Item Value Reference Range Comments PHOSPHORUS (BEAKER) (test mafj=923) 3.8 mg/dL 2.3-4.7 [id number] 05:02:00 Test Item Value Reference Range Comments MAGNESIUM (BEAKER) (test ixvi=369) 2.1 mg/dL 1.6-2.6 BASIC METABOLIC [id number] 05:02:00 Test Item Value Reference Range Comments SODIUM (BEAKER) (test 135 meq/L 136-145 mmiv=853) POTASSIUM (BEAKER) (test 3.5 meq/L 3.5-5.1 uxcn=428) CHLORIDE (BEAKER) (test 103 meq/L 98-107 gcij=468) CO2 (BEAKER) (test 22 meq/L 22-29 anuw=320) BLOOD UREA NITROGEN 9 mg/dL 7-21 (BEAKER) (test ewlx=685) CREATININE (BEAKER) (test 0.75 mg/dL 0.57-1.25 stpy=642) GLUCOSE RANDOM (BEAKER) 101 mg/dL 70-105 (test qqoa=282) CALCIUM (BEAKER) (test 9.2 mg/dL 8.4-10.2 kqle=026) EGFR (BEAKER) (test 136 mL/min/1.73 sq m ESTIMATED GFR IS NOT srea=9764) ACCURATE CREATININE CLEARANCE IN PREDICTING GLOMERULAR FILTRATION RATE. ESTIMATED GFR IS NOT APPLICABLE FOR DIALYSIS PATIENTS. LIPID [id number] 05:02:00 Test Item Value Reference Range Comments TRIGLYCERIDES (BEAKER) (test jcpm=933) 36 mg/dL CHOLESTEROL (BEAKER) (test blzp=863) 115 mg/dL HDL CHOLESTEROL (BEAKER) (test jszh=656) 30 mg/dL LDL CHOLESTEROL CALCULATED (BEAKER) (test 78 mg/dL qoad=261) Triglyceride Reference Range: Low Risk <150 Borderline 150- 199 High Risk 200-499 Very High Risk >=500Cholesterol Reference Range: Low Risk <200 Borderline 200-239 High Risk > 240HDL Cholesterol Reference Range: Low Risk >=60 High Risk <40LDL Cholesterol Reference Range: Optimal <100 Near Optimal 100-129 Borderline 130-159 High 160-189 Very High >=190HEPATIC FUNCTION [id number] 05:02:00 Test Item Value Reference Range Comments TOTAL PROTEIN (BEAKER) (test dkvq=962) 7.0 gm/dL 6.0-8.3 ALBUMIN (BEAKER) (test etrx=0398) 4.2 g/dL 3.5-5.0 BILIRUBIN TOTAL (BEAKER) (test zffi=138) 1.0 mg/dL 0.2-1.2 BILIRUBIN DIRECT (BEAKER) (test ebsr=467) 0.4 mg/dL 0.1-0.5 ALKALINE PHOSPHATASE (BEAKER) (test jqka=539) 164 U/L 40-150 AST (SGOT) (BEAKER) (test oqwe=899) 14 U/L 5-34 ALT (SGPT) (BEAKER) (test jgfk=657) 22 U/L 6-55 [id number] 05:02:00 Test Item Value Reference Range Comments AMYLASE (BEAKER) (test aorl=014) 42 U/L 25-125 [id number] 05:02:00 Test Item Value Reference Range Comments LIPASE (BEAKER) (test ezyg=519) 21 U/L 8-78 C-REACTIVE [id number] 05:02:00 Test Item Value Reference Range Comments C-REACTIVE PROTEIN (BEAKER) (test mikc=790) < mg/dL 0.00-0.50 CBC W/PLT COUNT & AUTO [id number] 05:01:00 Test Item Value Reference Range Comments WHITE BLOOD CELL COUNT 5.8 K/ L 3.5-10.5 (BEAKER) (test gwzo=262) RED BLOOD CELL COUNT (BEAKER) 4.05 M/ L 4.63-6.08 (test jxty=559) HEMOGLOBIN (BEAKER) (test 12.1 GM/DL 13.7-17.5 bojl=173) HEMATOCRIT (BEAKER) (test 34.9 % 40.1-51.0 ejsg=152) MEAN CORPUSCULAR VOLUME 86.2 fL 79.0-92.2 (BEAKER) (test pnlv=796) MEAN CORPUSCULAR HEMOGLOBIN 29.9 pg 25.7-32.2 (BEAKER) (test ncpb=509) MEAN CORPUSCULAR HEMOGLOBIN 34.7 GM/DL 32.3-36.5 CONC (BEAKER) (test hnrh=193) RED CELL DISTRIBUTION WIDTH 12.7 % 11.6-14.4 (BEAKER) (test lmpv=370) PLATELET COUNT (BEAKER) (test 239 K/CU MM 150-450 Discordant PLT result gqlu=972) Compared to previous one, Clinical correlation required. MEAN PLATELET VOLUME (BEAKER) 9.0 fL 9.4-12.4 (test hlun=711) NUCLEATED RED BLOOD CELLS 0 /100 WBC 0-0 (BEAKER) (test qxfg=550) NEUTROPHILS RELATIVE PERCENT 52 % (BEAKER) (test gluh=665) LYMPHOCYTES RELATIVE PERCENT 36 % (BEAKER) (test ranq=277) MONOCYTES RELATIVE PERCENT 11 % (BEAKER) (test fkvh=193) EOSINOPHILS RELATIVE PERCENT 1 % (BEAKER) (test lnlh=475) BASOPHILS RELATIVE PERCENT 1 % (BEAKER) (test elru=147) NEUTROPHILS ABSOLUTE COUNT 2.99 K/ L 1.78-5.38 (BEAKER) (test voef=435) LYMPHOCYTES ABSOLUTE COUNT 2.05 K/ L 1.32-3.57 (BEAKER) (test kwlb=136) MONOCYTES ABSOLUTE COUNT 0.63 K/ L 0.30-0.82 (BEAKER) (test bpat=553) EOSINOPHILS ABSOLUTE COUNT 0.04 K/ L 0.04-0.54 (BEAKER) (test mdej=762) BASOPHILS ABSOLUTE COUNT 0.05 K/ L 0.01-0.08 (BEAKER) (test knuk=387) IMMATURE 0 % 0-1 GRANULOCYTES-RELATIVE PERCENT (BEAKER) (test jenh=8052) U/S, ABDOMINAL, [id number] 21:37:00Abdomen limited area? Add comment if clarification is needed.->Right upper quadrantReason for exam:->ABDOMINAL PAINReason for exam:->EMESISReason for exam:->NAUSEAReason for exam:-> CHESTPAINFINAL REPORT Exam: Limited abdominal ultrasound. Clinical History: Abdominalpain, nausea and emesis. Chest pain. Comparison: No prior study for direct comparison. Findings: Sonographic evaluation of the right upper quadrant of the abdomen was performed. Liver: 12.2 cm in length at the right midclavicular line. Normal echogenicity. No lesion is identified by ultrasound.Main portal vein is patent measuring 1.3 cm in diameter, and demonstrates hepatopetal flow. Biliary tree: Common duct 5mm. No intrahepatic biliary ductal dilatation. Gallbladder: Contains sludge andmultiple shadowing stones. Top normal wall thickness measuring 3 mm. A sonographic Griggs sign is present. No pericholecystic fluid. Pancreas: Partially obscured by bowel gas with visualized portionsare unremarkable. Ascites: None seen. Right kidney: 10 x 5.6 x 4.2 cm with cortical thickness of 1.6 cm. Lower pole obscured by bowel gas. Normal cortical echogenicity. No mass. No shadowing calculus. No hydronephrosis. IVC/Aorta: Segments partially seen. Unremarkable. Impression: Cholelithiasis and sonographic Griggs sign which may be seen with acute cholecystitis. A HIDA scan may be performed to evaluate for cystic duct patency as clinically warranted. No biliary ductal dilatation. Signed:Sherlyn Atkinson MDReport Verified Date/Time: 21:37:34 Reading Location: [address] Reading Room RAD, ABDOMEN, 2 [id number] 19:46:00Reason for exam:->ConstipationFINAL REPORT CLINICAL HISTORY: Constipation COMPARISON: None. FINDINGS: For supine and left lateral decubitus views of the abdomen are submitted. The abdominal bowel gas patternis unobstructed. There is no focus of dilated large or small bowel. Enteric contrast is present in normal caliber large intestine. The fecal burden is normal. Graft no free air is noted in the abdomen on cubitus views. There is no evidence of organomegaly or significant ascites. No abnormal calcification is noted. The lung bases are clear. There is no acute bony abnormality. Signed: Stella Schneider MDReport Verified Date/Time : 12/20/2017 19:46:39 Reading Location: [address] Reading Room HEPATIC FUNCTION [id number] 19:09:00 Test Item Value Reference Range Comments TOTAL PROTEIN (BEAKER) (test gonb=071) 8.6 gm/dL 6.0-8.3 ALBUMIN (BEAKER) (test yggj=9122) 5.1 g/dL 3.5-5.0 BILIRUBIN TOTAL (BEAKER) (test kvpf=920) 0.8 mg/dL 0.2-1.2 BILIRUBIN DIRECT (BEAKER) (test yghr=388) 0.3 mg/dL 0.1-0.5 ALKALINE PHOSPHATASE (BEAKER) (test dohi=090) 193 U/L 40-150 AST (SGOT) (BEAKER) (test cjny=655) 19 U/L 5-34 ALT (SGPT) (BEAKER) (test rwgb=550) 28 U/L 6-55 TROPONIN [id number] 15:57:00 Test Item Value Reference Range Comments TROPONIN I (BEAKER) (test zthd=099) < ng/mL 0.00-0.03 Troponin I (TnI) levels must be interpreted in the context of the presenting symptoms and the clinical findings. Elevated TnI levels indicate myocardial damage, but are not specific for ischemic heart disease. Elevated TnI levels are seen in patients with other cardiac conditions (including myocarditis and congestive heart failure), and slight TnI elevations occur in patients with other conditions, including sepsis, renal failure, acidosis, acute neurological disease, and persistent tachyarrhythmia.B-TYPE NATRIURETIC FACTOR (BNP) 15:54:00 Test Item Value Reference Range Comments B-TYPE NATRIURETIC PEPTIDE (BEAKER) (test krnd=060) < pg/mL 0-100 BASIC METABOLIC [id number] 15:54:00 Test Item Value Reference Range Comments SODIUM (BEAKER) (test 138 meq/L 136-145 glvs=192) POTASSIUM (BEAKER) (test 4.1 meq/L 3.5-5.1 mawh=991) CHLORIDE (BEAKER) (test 101 meq/L 98-107 rqon=528) CO2 (BEAKER) (test 26 meq/L 22-29 ntxt=087) BLOOD UREA NITROGEN 13 mg/dL 7-21 (BEAKER) (test pmjs=479) CREATININE (BEAKER) (test 0.85 mg/dL 0.57-1.25 mcxi=185) GLUCOSE RANDOM (BEAKER) 105 mg/dL 70-105 (test xugn=191) CALCIUM (BEAKER) (test 10.1 mg/dL 8.4-10.2 fylg=462) EGFR (BEAKER) (test mL/min/1.73 sq m INSUFFICIENT CLINICAL DATA aqnb=6789) TO CALCULATE ESTIMATED GFR. [id number] 15:48:00 Test Item Value Reference Range Comments MAGNESIUM (BEAKER) (test ehsg=024) 2.5 mg/dL 1.6-2.6 RAD, CHEST, 2 [id number] 15:43:00Reason for exam:->ABDOMINAL PAINReason for exam:->EMESISReason for exam:->NAUSEAReason for exam:->CHEST PAINFINAL REPORT Two views chest Discussion: Heart, lungs , bones, soft tissues unremarkable. No effusion or pneumothorax. Signed: Vipul Zaragoza Verified Date/Time: 12/20/2017 15:43:26 Reading Location: [address] Consult Reading Room [id number] 15:40:00 Test Item Value Reference Range Comments PROTIME (BEAKER) (test zwmm=119) 15.8 seconds 11.7-14.7 INR (BEAKER) (test axwq=364) 1.3 <=5.9 PARTIAL THROMBOPLASTIN TIME (BEAKER) (test 32.1 seconds 22.5-36.0 tvao=449) RECOMMENDED COUMADIN/WARFARIN INR THERAPY RANGESSTANDARD DOSE: 2.0 - 3.0 Includes: PROPHYLAXIS forvenous thrombosis, systemic embolization; TREATMENT for venous thrombosis and/or pulmonary embolus.HIGH RISK: Target INR is 2.5-3.5 for patients with mechanical heart valves.CBC W/PLT COUNT & AUTO [id number] 15:31:00 Test Item Value Reference Range Comments WHITE BLOOD CELL COUNT (BEAKER) (test mxqu=006) 7.1 K/ L 3.5-10.5 RED BLOOD CELL COUNT (BEAKER) (test vwxw=006) 4.77 M/ L 4.63-6.08 HEMOGLOBIN (BEAKER) (test qjzw=114) 13.9 GM/DL 13.7-17.5 HEMATOCRIT (BEAKER) (test scry=837) 41.5 % 40.1-51.0 MEAN CORPUSCULAR VOLUME (BEAKER) (test vzdm=225) 87.0 fL 79.0-92.2 MEAN CORPUSCULAR HEMOGLOBIN (BEAKER) (test 29.1 pg 25.7-32.2 uzja=880) MEAN CORPUSCULAR HEMOGLOBIN CONC (BEAKER) (test 33.5 GM/DL 32.3-36.5 ejgv=428) RED CELL DISTRIBUTION WIDTH (BEAKER) (test 12.9 % 11.6-14.4 pclb=337) PLATELET COUNT (BEAKER) (test marf=749) 300 K/CU MM 150-450 MEAN PLATELET VOLUME (BEAKER) (test grng=514) 9.0 fL 9.4-12.4 NUCLEATED RED BLOOD CELLS (BEAKER) (test 0 /100 WBC 0-0 udsb=514) NEUTROPHILS RELATIVE PERCENT (BEAKER) (test 77 % amic=564) LYMPHOCYTES RELATIVE PERCENT (BEAKER) (test 15 % hpup=572) MONOCYTES RELATIVE PERCENT (BEAKER) (test 7 % rejz=424) EOSINOPHILS RELATIVE PERCENT (BEAKER) (test 0 % rqoz=091) BASOPHILS RELATIVE PERCENT (BEAKER) (test 1 % ixwn=886) NEUTROPHILS ABSOLUTE COUNT (BEAKER) (test 5.42 K/ L 1.78-5.38 htfi=382) LYMPHOCYTES ABSOLUTE COUNT (BEAKER) (test 1.04 K/ L 1.32-3.57 pnzg=007) MONOCYTES ABSOLUTE COUNT (BEAKER) (test 0.52 K/ L 0.30-0.82 edxz=270) EOSINOPHILS ABSOLUTE COUNT (BEAKER) (test 0.02 K/ L 0.04-0.54 eeix=069) BASOPHILS ABSOLUTE COUNT (BEAKER) (test 0.04 K/ L 0.01-0.08 znjz=657) IMMATURE GRANULOCYTES-RELATIVE PERCENT (BEAKER) 0 % 0-1 (test fmjs=9737)
[2019-01-12 00:04] LABS: Absolute Monocytes 0.9 K/uL (0.1-1.3); Absolute Neutrophil 10.2 K/uL (1.8-8.0); Basophils % 0.3 % (0-1.3); Eosinophils % 0.1 % (0-4.4); Hematocrit 44.5 % (39.6-49.0); Lymphocytes % 8.3 % (15.3-44.8); MPV 8.3 fL (7.6-11.3); Monocytes % 7.3 % (3.3-12.3); RBC Red Blood Cell Count 5.23 M/uL (4.33-5.43)
[2019-01-12] MEDS ORDERED: MORPHINE 2 MG/ML SYR ONE (00:09)
[2019-01-12] MEDS ORDERED: FAMOTIDINE 20 MG/2 ML VIAL IV ONE (00:09)
[2019-01-12] MEDS ORDERED: NA CHLORIDE 0.9% 1,000 ML ONE (00:09)
[2019-01-12] MEDS ORDERED: ONDANSETRON 4 MG/2 ML VIAL ONE (00:09)
[2019-01-12 00:14] LABS: Barbiturates NEGATIVE (NEGATIVE); Benzodiazepines NEGATIVE (NEGATIVE); Cocaine NEGATIVE (NEGATIVE); METHAMPHETAM NEGATIVE (NEGATIVE); Methadone NEGATIVE (NEGATIVE); Opiates NEGATIVE (NEGATIVE); Phencyclidine NEGATIVE (NEGATIVE); THC Cannibis NEGATIVE (NEGATIVE)
[2019-01-12 00:16] LABS: Urine Blood NEGATIVE (NEG); Urine Glucose NEGATIVE (NEG); Urine Protein 3+ (NEG); Urine pH 8.5 (5.0-7.0)
[2019-01-12 00:18] LABS: Albumin 5.3 g/dL (3.4-5.0); Bilirubin Direct 0.2 mg/dL (0-0.2); Bilirubin Total 0.8 mg/dL (0.2-1.0); Magnesium 1.9 mg/dL (1.8-2.4); Potassium 3.3 mmol/L (3.5-5.1); Protein, Total 9.5 g/dL (6.4-8.2)
[2019-01-12 01:05] LABS: Urine Bacteria <20 /HPF (NONE SEEN); Urine Culture Reflex Order NOT NEEDED; Urine Mucus HEAVY /HPF (NONE SEEN); Urine RBC <5 /HPF (NONE SEEN)
[2019-01-12] MEDS ORDERED: NA CHLORIDE 0.9% 500 ML ONE (01:15)
[2019-01-12] MEDS ORDERED: PROMETHAZINE 25 MG/ML VIAL ONE (01:15)
[2019-01-12] MEDS ORDERED: MAGNE/ALUM HYDROXD 30 ML UCUP ONE (02:20)
[2019-01-12] MEDS ORDERED: LIDOCAINE VISCOUS 2% SOLN 15 ML UDC ONE (02:20)
--- NOTE | 2019-01-12 02:55 | ER ---
Nurse's Notes [facility] Name: Jaspreet Otero Age: 18 yrs Sex: Male : 2000 Arrival Date: 01/11/2019 Time: 23:05 Bed 15 Private MD: Diagnosis: Nausea and vomiting;Unspecified abdominal pain Presentation: 01/11 23:10 Presenting complaint: Patient states: that he is having abd pain, nausea and vomiting fc that started today. This problem has been and issue on and off x 2 months. Pt is yelling and unable to sit still. States that he is hurting too bad. Transition of care: patient was not received from another setting of care. Onset of symptoms was January 11, 2019. Risk Assessment: Do you want to hurt yourself or someone else? Patient reports no desire to harm self or others. Initial Sepsis Screen: Does the patient meet any 2 criteria? HR > 90 bpm. Yes Does the patient have a suspected source of infection? No. Patient's initial sepsis screen is negative. Care prior to arrival: None. 23:10 Method Of Arrival: Wheelchair fc 23:10 Acuity: RAY 3 fc Historical: - Allergies: 23:27 No Known Allergies; fc - Home Meds: 23:27 Unable to obtain [Active]; fc - PMHx: 23:27 Bipolar disorder; Gallstones; fc - PSHx: 23:27 Cholecystectomy; fc - Immunization history:: Last tetanus immunization: up to date Flu vaccine is not up to date. - Social history:: Smoking status: Patient/guardian denies using tobacco, Patient/guardian denies using alcohol, street drugs. - Ebola Screening: : Patient negative for fever greater than or equal to 101.5 degrees Fahrenheit, and additional compatible Ebola Virus Disease symptoms Patient denies exposure to infectious person Patient denies travel to an Ebola-affected area in the 21 days before illness onset. Screenin:25 Abuse screen: Denies threats or abuse. Nutritional screening: No deficits noted. fc Tuberculosis screening: No symptoms or risk factors identified. Fall Risk None identified. Assessment: 23:30 General: Appears uncomfortable, Behavior is agitated, anxious, uncooperative. Pain: jb4 Complains of pain in abdomen Pain does not radiate. Pain currently is 10 out of 10 on a pain scale. Quality of pain is described as. Neuro: Level of Consciousness is awake, alert, obeys commands, Oriented to person, place, time, situation. Cardiovascular: Patient's skin is warm and dry. Respiratory: Airway is patent Respiratory effort is even, unlabored, Respiratory pattern is regular, symmetrical. GI: Abdomen is flat, non-distended, Bowel sounds present X 4 quads. Abd is soft X 4 quads Abdomen is tender to palpation X 4 quads. Reports nausea, vomiting. : No signs and/or symptoms were reported regarding the genitourinary system. EENT: No signs and/or symptoms were reported regarding the EENT system. Derm: Skin is intact, Skin is pink, warm \T\ dry. 23:30 Musculoskeletal: Circulation, motion, and sensation intact. jb4 01/12 01:00 Reassessment: No changes from previously documented assessment. Patient and/or family jb4 updated on plan of care and expected duration. Pain level reassessed. Patient is alert, oriented x 3, equal unlabored respirations, skin warm/dry/pink. 02:30 Reassessment: Patient and/or family updated on plan of care and expected duration. Pain jb4 level reassessed. Patient is alert, oriented x 3, equal unlabored respirations, skin warm/dry/pink. PT refused medications. reports feeling better. Denies nausea. 02:52 Reassessment: PT wanted to leave AMA before hearing test results. AMA for signed. bishop ambulated out of ED with mother, gait was steady, no s/s of distress noted. Informed that he cannot drive and if he tried to drive himself home law enforcement would be notified due to narcotic drug administrations while in ED. Vital Signs: 01/11 23:10 BP 139 / 62; Pulse 92; Resp 18; Temp 98.1(O); Pulse Ox 100% on R/A; Weight 82.55 kg fc (R); Height 5 ft. 11 in. (180.34 cm) (R); Pain 06/28; 01/12 00:52 BP 144 / 98; Pulse 93; Resp 16; Pulse Ox 100% on R/A; jb4 02:25 BP 150 / 84; Pulse 80; Resp 16; Pulse Ox 97% on R/A; jb4 01/11 23:10 Body Mass Index 25.38 (82.55 kg, 180.34 cm) ED Course: 01/11 23:05 Patient arrived in ED. do 23:10 Arm band placed on Patient placed in an exam room, on a stretcher. 23:19 López Law PA is PHCP. cp 23:19 López Crocker MD is Attending Physician. cp 23:24 Triage completed. 23:25 Patient has correct armband on for positive identification. Bed in low position. Call light in reach. Side rails up X 1. Pulse ox on. NIBP on. 23:45 Inserted saline lock: 18 gauge in right antecubital area, using aseptic technique. ds4 Blood collected. 23:47 Lipase Sent. ds4 23:48 Basic Metabolic Panel Sent. ds4 23:48 Hepatic Function Sent. ds4 23:48 CBC with Diff Sent. ds4 23:48 Creatinine for Radiology Sent. ds4 23:48 Magnesium Sent. ds4 23:50 Main Miller, RN is Primary Nurse. jb4 01/12 01:57 CT Abd/Pelvis - W/Contrast: no oral contrast In Process Unspecified. EDMS 02:52 No provider procedures requiring assistance completed. IV discontinued, intact, jb4 bleeding controlled, No redness/swelling at site. Administered Medications: 01/11 23:59 Drug: Pepcid 20 mg Route: IVP; Site: right antecubital; jb4 01/12 00:30 Follow up: Response: No adverse reaction jb4 00:01 Drug: Zofran 4 mg Route: IVP; Site: right antecubital; jb4 00:30 Follow up: Response: No adverse reaction; Nausea unchanged jb4 00:03 Drug: NS 0.9% 1000 ml Route: IV; Rate: 1 bolus; Site: right antecubital; jb4 01:00 Follow up: Response: No adverse reaction; IV Status: Completed infusion; IV Intake: jb4 1000ml 00:04 Drug: morphine 2 mg Route: IVP; Site: right antecubital; jb4 00:30 Follow up: Response: No adverse reaction; Pain is decreased jb4 01:11 Drug: Phenergan 25 mg {Note: Administered in 500ml bolus per providers orders..} Route: jb4 IVP; Site: right antecubital; 01:40 Follow up: Response: No adverse reaction; Nausea is decreased jb4 01:12 Drug: NS 0.9% 500 ml Route: IV; Rate: bolus; Site: right antecubital; jb4 01:45 Follow up: Response: No adverse reaction; IV Status: Completed infusion; IV Intake: jb4 500ml 02:00 Drug: GI Cocktail without - (Maalox Suspension 30 ml, Lidocaine Liquid 2 % 15 jb4 ml) Route: PO; 02:05 Follow up: Response: No adverse reaction; No adverse reaction, PT vomited after GI jb4 cocktail administration, Provider notified. See MAR for orders. 02:28 Not Given (Patient Refused): Zofran 4 mg IVP once; over 2 minutes jb4 02:28 Not Given (Patient Refused): Ativan 1 mg IM once jb4 Intake: 01:00 IV: 1000ml; Total: 1000ml. jb4 01:45 IV: 500ml; Total: 1500ml. jb4 Outcome: 02:52 AMA AMA form signed jb4 02:52 Condition: stable 02:52 Discharge instructions given to patient, family, Instructed on follow up and referral plans. Demonstrated understanding of instructions. 02:57 Patient left the ED. jb4 Signatures: Dispatcher [employer] EDMS Molly Rogers RN RN Musa Omalley ds4 López Law PA PA cp Ogletree, Danielle do Bryson, James RN RN jb4 Corrections: (The following items were deleted from the chart) 01:10 01/11 23:30 GI: Abdomen is flat, non-distended, Abd is soft X 4 quads Abdomen is tender jb4 to palpation X 4 quads. jb4 01/12 01:16 01/11 23:30 GI: Abdomen is flat, non-distended, Bowel sounds present X 4 quads. Abd is jb4 soft X 4 quads Abdomen is tender to palpation X 4 quads. jb4
--- NOTE | 2019-01-12 02:55 | EDPHYS ---
Physician Documentation [facility] Name: Jaspreet Otero Age: 18 yrs Sex: Male : 2000 Arrival Date: 01/11/2019 Time: 23:05 Bed 15 Private MD: ED Physician López Crocker HPI: 01/11 23:50 This 18 yrs old Male presents to ER via Wheelchair with complaints of cp Abdominal Pain. 23:50 The patient presents with abdominal pain in the upper abdomen, in the periumbilical cp area. 23:50 The symptoms do not radiate. Associated signs and symptoms: Pertinent positives: nausea cp and vomiting, Pertinent negatives: blood in stools, constipation, diarrhea, fever, testicular pain, vomiting blood. 23:50 The patient has experienced similar episodes in the past, multiple times. cp 23:50 Onset: The symptoms/episode began/occurred 2 month(s) ago, and became worse today. cp 23:50 Family reports patient has had similar episodes over past 2 months. Unsure of cause as cp patient has seen GI. Denies use of illegal drugs. Historical: - Allergies: 23:27 No Known Allergies; fc - Home Meds: 23:27 Unable to obtain [Active]; fc - PMHx: 23:27 Bipolar disorder; Gallstones; fc - PSHx: 23:27 Cholecystectomy; fc - Immunization history:: Last tetanus immunization: up to date Flu vaccine is not up to date. - Social history:: Smoking status: Patient/guardian denies using tobacco, Patient/guardian denies using alcohol, street drugs. - Ebola Screening: : Patient negative for fever greater than or equal to 101.5 degrees Fahrenheit, and additional compatible Ebola Virus Disease symptoms Patient denies exposure to infectious person Patient denies travel to an Ebola-affected area in the 21 days before illness onset. ROS: 23:55 Constitutional: Negative for body aches, chills, fever, poor PO intake. cp 23:55 Eyes: Negative for injury, pain, redness, and discharge. cp 23:55 ENT: Negative for drainage from ear(s), ear pain, sore throat, difficulty swallowing, difficulty handling secretions. 23:55 Cardiovascular: Negative for chest pain, palpitations. 23:55 Respiratory: Negative for cough, shortness of breath, wheezing. 23:55 Abdomen/GI: Positive for abdominal pain, nausea and vomiting, Negative for diarrhea, constipation, hematemesis, black/tarry stool, rectal bleeding. 23:55 Back: Negative for pain at rest, pain with movement, radiated pain. 23:55 : Negative for urinary symptoms, hematuria, testicular pain 23:55 Neuro: Negative for altered mental status, headache, syncope, weakness. 23:55 All other systems are negative. Exam: 23:59 Constitutional: The patient appears in no acute distress, alert, awake, cp non-diaphoretic, non-toxic, well developed, well nourished. 23:59 Head/Face: Normocephalic, atraumatic. Eyes: Pupils equal round and reactive to light, cp extra-ocular motions intact. Lids and lashes normal. Conjunctiva and sclera are non-icteric and not injected. Cornea within normal limits. Periorbital areas with no swelling, redness, or edema. ENT: Nares patent. No nasal discharge, no septal abnormalities noted. Tympanic membranes are normal and external auditory canals are clear. Oropharynx with no redness, swelling, or masses, exudates, or evidence of obstruction, uvula midline. Mucous membranes moist. Chest/axilla: Normal chest wall appearance and motion. Nontender with no deformity. No lesions are appreciated. 23:59 Cardiovascular: Rate: normal, Rhythm: regular. 23:59 Respiratory: the patient does not display signs of respiratory distress, Respirations: normal, no use of accessory muscles, no retractions, no splinting, no tachypnea, labored breathing, is not present, Breath sounds: are clear throughout, no decreased breath sounds, no stridor, no wheezing. 23:59 Abdomen/GI: Inspection: abdomen appears normal, Bowel sounds: active, all quadrants, Palpation: soft, in all quadrants, rebound tenderness, is not appreciated, involuntary guarding, is not appreciated. 23:59 Back: pain, is absent, ROM is normal. 23:59 Neuro: Orientation: to person, place \T\ time. Mentation: is normal. Vital Signs: 23:10 BP 139 / 62; Pulse 92; Resp 18; Temp 98.1(O); Pulse Ox 100% on R/A; Weight 82.55 kg fc (R); Height 5 ft. 11 in. (180.34 cm) (R); Pain 10/; 01/12 00:52 BP 144 / 98; Pulse 93; Resp 16; Pulse Ox 100% on R/A; jb4 02:25 BP 150 / 84; Pulse 80; Resp 16; Pulse Ox 97% on R/A; jb4 01/11 23:10 Body Mass Index 25.38 (82.55 kg, 180.34 cm) MDM: 01/11 23:19 Patient medically screened. 01/12 00:00 Differential diagnosis: appendicitis, bowel obstruction, gastritis, GI Bleed, cp non-specific abd pain, pancreatitis, Peptic Ulcer Disease, Perf. Duodenal Ulcer, Perf. Gastric Ulcer, Ureterolithiasis, urinary tract infection. 02:53 Data reviewed: vital signs, nurses notes, lab test result(s), radiologic studies, CT cp scan, I have discussed the patient's presentation/case with the attending Emergency Department Physician;. 02:53 Response to treatment: the patient's symptoms have mildly improved after treatment. cp 01/11 23:44 Order name: Basic Metabolic Panel; Complete Time: 00:58 01/12 02:14 Interpretation: Normal except: K 3.3; CO2 20; GLUC 143; GFR 73; CA 10.2. cp 01/11 23:44 Order name: CBC with Diff; Complete Time: 00:58 cp 01/12 00:58 Interpretation: Normal except: WBC 12.1; LILIA% 84.0; LYM% 8.3; NEUT A 10.2. cp 01/11 23:44 Order name: Creatinine for Radiology; Complete Time: 00:58 cp 01/11 23:44 Order name: Hepatic Function; Complete Time: 00:58 cp 01/11 23:44 Order name: Lipase; Complete Time: 00:58 cp 01/11 23:44 Order name: Magnesium; Complete Time: 00:58 cp 01/11 23:50 Order name: UDS; Complete Time: 00:58 cp 01/11 23:50 Order name: Urine Microscopic Only; Complete Time: 02:13 01/12 00:09 Order name: Urine Dipstick--Ancillary (enter results) 01/12 01:09 Order name: CT Abd/Pelvis - W/Contrast: no oral contrast 01/11 23:44 Order name: IV Saline Lock; Complete Time: 23:47 01/11 23:44 Order name: Labs collected and sent; Complete Time: 23:47 cp 01/11 23:50 Order name: Urine Dipstick-Ancillary (obtain specimen); Complete Time: 00:07 cp Administered Medications: 01/11 23:59 Drug: Pepcid 20 mg Route: IVP; Site: right antecubital; jb4 01/12 00:30 Follow up: Response: No adverse reaction jb4 00:01 Drug: Zofran 4 mg Route: IVP; Site: right antecubital; jb4 00:30 Follow up: Response: No adverse reaction; Nausea unchanged jb4 00:03 Drug: NS 0.9% 1000 ml Route: IV; Rate: 1 bolus; Site: right antecubital; jb4 01:00 Follow up: Response: No adverse reaction; IV Status: Completed infusion; IV Intake: jb4 1000ml 00:04 Drug: morphine 2 mg Route: IVP; Site: right antecubital; jb4 00:30 Follow up: Response: No adverse reaction; Pain is decreased jb4 01:11 Drug: Phenergan 25 mg {Note: Administered in 500ml bolus per providers orders..} Route: jb4 IVP; Site: right antecubital; 01:40 Follow up: Response: No adverse reaction; Nausea is decreased jb4 01:12 Drug: NS 0.9% 500 ml Route: IV; Rate: bolus; Site: right antecubital; jb4 01:45 Follow up: Response: No adverse reaction; IV Status: Completed infusion; IV Intake: jb4 500ml 02:00 Drug: GI Cocktail without - (Maalox Suspension 30 ml, Lidocaine Liquid 2 % 15 jb4 ml) Route: PO; 02:05 Follow up: Response: No adverse reaction; No adverse reaction, PT vomited after GI jb4 cocktail administration, Provider notified. See MAR for orders. 02:28 Not Given (Patient Refused): Zofran 4 mg IVP once; over 2 minutes jb4 02:28 Not Given (Patient Refused): Ativan 1 mg IM once jb4 Disposition: 01/12/19 02:54 Patient has left against medical advice. Impression: Nausea and vomiting, Unspecified abdominal pain. - Patients states they are going to Home. - Condition is Stable. - Discharge Instructions: Abdominal Pain, Adult, Nausea and Vomiting, Adult. Follow up: Private Physician; When: Today; Reason: Recheck today's complaints. - Problem is new. - Symptoms have improved. Addendum: 01/16/2019 10:49 Co-signature as Attending Physician, López Crocker MD I agree with the assessment and c brandon plan of care. Signatures: Dispatcher [employer] EDLópez Goodwin MD MD cha Chretien, Felicia, RN RN López Law PA PA Main Gilman, RN RN jb4 Corrections: (The following items were deleted from the chart) 01/12 02:14 00:58 Normal except: K 3.3; CO2 20; GLUC 143; GFR 73. cp cp 02:57 02:54 01/12/2019 02:54 Patients has left against medical advice. Impression: Nausea and jb4 vomiting; Unspecified abdominal pain. Patient states they are going to Home. Condition is Stable. Follow up: Private Physician; When: Today; Reason: Recheck today's complaints. Problem is new. Symptoms have improved. cp
--- NOTE | 2019-01-12 12:04 | RAD REPORT ---
EXAM DESCRIPTION: CT - Abdomen Pelvis W Contrast - 01/12/2019 3:41 am CLINICAL HISTORY: The patient is 18 years old and is Male; Abd pain;Nausea / vomiting TECHNIQUE: Axial computed tomography images of the abdomen and pelvis with intravenous contrast. S agittal and coronal reformatted images were created and reviewed. This CT exam was performed using one or more of the following dose reduction techniques: automated exposure control, adjustment of t he mA and/or kV according to patient size, and/or use of iterative reconstruction technique. COMPARISON: No relevant prior studies available. FINDINGS: ARTIFACTS: The exam is suboptimal secondary to motion artifact. LUNG BASES: Unremarkable. No mass. No consolidation. ABDOMEN: LIVER: Unremarkable. No mass. GALLBLADDER AND BILE DUCTS: Surgical clips are present in the right upper quadrant, consistent w ith previous cholecystectomy. PANCREAS: No ductal dilation. No mass. SPLEEN: Unremarkable. ADRENALS: Unremarkable. No mass. KIDNEYS AND URETERS: Unremarkable. No solid mass. No hydronephrosis. STOMACH AND BOWEL: The bladder is moderately distended. The stomach is minimally distended with food contents. The small bowel is grossly unremarkable as is the colon. No findings to suggest obstru ction. PELVIS: APPENDIX: The appendix is normal in caliber without surrounding inflammation. BLADDER: Unremarkable. No mass. REPRODUCTIVE: Unremarkable as visualized. ABDOMEN and PELVIS: INTRAPERITONEAL SPACE: Unremarkable. No free air. No significant fluid collection. BONES/JOINTS: No acute fracture. SOFT TISSUES: The soft tissues are normal. VASCULATURE: Unremarkable. No abdominal aortic aneurysm. LYMPH NODES: Unremarkable. No enlarged lymph nodes. IMPRESSION: Examination is limited by motion artifact. No acute findings on this contrasted CT of the abdomen and pelvis to explain the patient's symptom s. Electronically signed by: Lavern Olea MD 01/12/2019 2:06 AM CDT Due to temporary technical issues with the PACS/Fluency reporting system, reports are being signed by the in house radiologist as a courtesy to ensure prompt reporting. The interpreting radiologist is f ully responsible for the content of the report.
== END 2019-01-12 02:57 | disposition left against medical advice (07) ==
LOC: ER 23:04
DX: R11.2 Nausea with vomiting, unspecified (principal)
CPT/HCPCS: 36415; 74177; 80048; 80076; 80307; 81003; 81015; 83690; 83735; 85025; 96361; 96374; 96375; 99284; J2550; Q9967